=== PATIENT | female | born 1965 | race Caucasian/White ===

== ENCOUNTER 2017-12-15 19:42 | Observation (INO) ==
[2017-12-15] MEDS ORDERED: SODIUM CHLORIDE 0.9% 1,000 ML IV STA ×2 (20:25→22:42)
[2017-12-15] MEDS ORDERED: ONDANSETRON 4 MG/2 ML VIAL IV STA (20:25)
[2017-12-15] MEDS ORDERED: ACETAMINOPHEN 500 MG TABLET PO STA (20:27)
[2017-12-15 20:31] LABS: Basophils % 0.1 % (0.0-0.8); Hematocrit 35.4 VOL% (35.7-47.0); Hemoglobin 12.2 GM/DL (12.0-16.0); Immature Granulocytes % 0.4 %; Immature Granulocytes Absolute 0.04 #; Lymphocytes # 0.4 10*3/uL (1.4-4.0); Mean Corpuscular HGB Conc 34.5 GM/DL (32-36); Mean Corpuscular Hemoglobin 32 PG (27-34); Mean Corpuscular Volume 91.5 FL (87-102); Mean Platelet Volume 10.4 FL (9.6-12.0); Monocytes # 0.1 10*3/uL (0.11-0.8); Monocytes % 1.1 % (1.7-12.7); Neutrophils # 9.8 10*3/uL (1.4-7.4); Neutrophils % 94.4 % (38.7-73.9); Platelet Count 166 T/CUMM (130-400); Red Blood Count 3.87 MC/CUMM (3.8-5.5); Red Cell Distribution Width 12.4 % (9.3-17.3); White Blood Count 10.4 T/CUMM (4-12)
[2017-12-15 20:45] LABS: Albumin 2.6 G/DL (3.4-5.0); Bilirubin,Total 0.4 MG/DL (0.2-1.0); Calcium 7.8 MG/DL (8.5-10.1); Osmolality,Calculated 276.5 MOS/KG (273-304); Potassium 2.6 MMOL/L (3.5-5.1); Total Protein 6.7 G/DL (6.4-8.3)
[2017-12-15 20:53] LABS: Band Neutrophils 39 % (0-10); Lymphocytes 3 % (20-55); Platelet Estimate Normal; Segmented Neutrophils 56 % (50-85)
[2017-12-15 20:54] LABS: Microcytosis Slight
[2017-12-15 20:55] LABS: Total Cells Counted 100
[2017-12-15] MEDS ORDERED: POTASSIUM BICARB EFFERVESCENT 25 MEQ TABLET PO ONE ×2 (21:07→23:56)
[2017-12-15] MEDS ORDERED: LEVOFLOXACIN INJ 500 MG in PREMIX 1 EACH IV STA (21:37)
[2017-12-15 22:25] LABS: Apearance,Urine Slightly Hazy (Clear); Bacteria,Urine Occasional /HPF (Few); Bilirubin,Urine Negative (Negative); Blood, Urine Small mg/dL (Negative); Glucose,Urine (UA) Negative (Negative); Ketones,Urine 5 mg/dL (Negative); Mucus,Urine Occasional /LPF (Occasional); Nitrite,Urine Positive (Negative); Protein,Urine 30 MG/DL; RBC,Urine 3 /HPF (0-4); Squamous Epithelial Cell,Urine Occasional /HPF (0-10); Urine Color Yellow (Yellow); Urine Specific Gravity 1.056 (1.001-1.035); Urine Urobilinogen < 2.0 EU/DL (0.2-1.0); WBC,Urine 70 /HPF (0-6)
[2017-12-15] MEDS ORDERED: MORPHINE 4 MG/1 ML VIAL IV PRN (23:44)
[2017-12-15] MEDS ORDERED: diphenhydrAMINE CAP 25 MG CAPSULE PO PRN (23:44)
[2017-12-15] MEDS ORDERED: POTASSIUM CHLORIDE 20 MEQ TABLET PO ONE (23:44)
[2017-12-15] MEDS ORDERED: ZALEPLON 5 MG CAPSULE PO PRN (23:44)
[2017-12-15] MEDS ORDERED: PROMETHAZINE 25 MG/1 ML VIAL IM PRN (23:44)
[2017-12-15] MEDS ORDERED: NICOTINE 21 MG/24 HR PATCH TRANSDERM PRN (23:44)
[2017-12-15] MEDS ORDERED: LACTULOSE 20 GM/30 ML UDCUP PO PRN (23:44)
[2017-12-16] MEDS: CIPROFLOXACIN INJ 400 MG in PREMIX 1 EACH IV SCH ×3 (00:20→15:25)
[2017-12-16] MEDS ORDERED: CIPROFLOXACIN 400 MG/200 ML PREMIX IV ONE (00:29)
[2017-12-16] MEDS: SODIUM CHLORIDE 0.9% 1,000 ML IV SCH ×3 (01:58→22:48)
[2017-12-16] MEDS: metroNIDAZOLE INJ 500 MG in PREMIX 1 EACH IV SCH ×3 (01:59→17:47)
[2017-12-16] MEDS: ACETAMINOPHEN 325 MG TABLET PO PRN ×2 (01:59→17:46)
[2017-12-16] MEDS: ONDANSETRON 4 MG/2 ML VIAL IV PRN ×3 (02:05→15:20)
[2017-12-16 05:50] LABS: Basophils % 0.2 % (0.0-0.8); Eosinophils % 0.3 % (0.00-10.9); Hemoglobin 11.8 GM/DL (12.0-16.0); Immature Granulocytes % 0.4 %; Immature Granulocytes Absolute 0.05 #; Lymphocytes # 1.3 10*3/uL (1.4-4.0); Lymphocytes % 11.3 % (21.3-54.2); Mean Corpuscular HGB Conc 34.7 GM/DL (32-36); Mean Corpuscular Hemoglobin 32 PG (27-34); Mean Corpuscular Volume 92.9 FL (87-102); Mean Platelet Volume 10.3 FL (9.6-12.0); Monocytes # 0.6 10*3/uL (0.11-0.8); Monocytes % 5.4 % (1.7-12.7); Neutrophils # 9.2 10*3/uL (1.4-7.4); Neutrophils % 82.4 % (38.7-73.9); Platelet Count 159 T/CUMM (130-400); Red Blood Count 3.66 MC/CUMM (3.8-5.5); Red Cell Distribution Width 12.8 % (9.3-17.3); White Blood Count 11.1 T/CUMM (4-12)
[2017-12-16 06:40] LABS: Albumin 2.3 G/DL (3.4-5.0); Bilirubin,Total 0.4 MG/DL (0.2-1.0); Calcium 7.3 MG/DL (8.5-10.1); Osmolality,Calculated 276.4 MOS/KG (273-304); Potassium 3.2 MMOL/L (3.5-5.1); Total Protein 6.2 G/DL (6.4-8.3)
[2017-12-16] MEDS: POTASSIUM CHLORIDE 20 MEQ TABLET PO SCH (10:54)
[2017-12-16] MEDS: ASPIRIN EC 81 MG TABLET PO SCH (10:55)
[2017-12-16] MEDS: CALCIUM (CARBONATE) 600 MG TABLET PO SCH ×2 (10:56→20:11)
[2017-12-16] MEDS: PANTOPRAZOLE 40 MG TABLET PO SCH (11:05)
[2017-12-16] MEDS: METOPROLOL SUCCINATE XL 50 MG TABLET PO SCH (11:17)
[2017-12-16] MEDS: IRBESARTAN 150 MG TABLET PO SCH (11:17)
[2017-12-16] MEDS: ATORVASTATIN 20 MG TABLET PO SCH (17:46)
[2017-12-17] MEDS: CIPROFLOXACIN INJ 400 MG in PREMIX 1 EACH IV SCH ×2 (00:29→09:21)
[2017-12-17] MEDS: metroNIDAZOLE INJ 500 MG in PREMIX 1 EACH IV SCH ×2 (02:30→09:14)
[2017-12-17 04:44] LABS: Basophils % 0.2 % (0.0-0.8); Eosinophils % 0.5 % (0.00-10.9); Immature Granulocytes % 0.5 %; Immature Granulocytes Absolute 0.04 #; Lymphocytes # 1.2 10*3/uL (1.4-4.0); Lymphocytes % 13.5 % (21.3-54.2); Mean Corpuscular HGB Conc 33.3 GM/DL (32-36); Mean Corpuscular Hemoglobin 31 PG (27-34); Mean Corpuscular Volume 93.8 FL (87-102); Mean Platelet Volume 10.6 FL (9.6-12.0); Monocytes # 0.9 10*3/uL (0.11-0.8); Monocytes % 10.6 % (1.7-12.7); Neutrophils # 6.4 10*3/uL (1.4-7.4); Neutrophils % 74.7 % (38.7-73.9); Platelet Count 175 T/CUMM (130-400); Red Blood Count 3.52 MC/CUMM (3.8-5.5); Red Cell Distribution Width 12.8 % (9.3-17.3); White Blood Count 8.5 T/CUMM (4-12)
[2017-12-17 04:59] LABS: Calcium 7.6 MG/DL (8.5-10.1); Osmolality,Calculated 276.4 MOS/KG (273-304); Potassium 3.5 MMOL/L (3.5-5.1)
[2017-12-17] MEDS: ASPIRIN EC 81 MG TABLET PO SCH (08:30)
[2017-12-17] MEDS: IRBESARTAN 150 MG TABLET PO SCH (08:31)
[2017-12-17] MEDS: POTASSIUM CHLORIDE 20 MEQ TABLET PO SCH (08:31)
[2017-12-17] MEDS: CALCIUM (CARBONATE) 600 MG TABLET PO SCH ×2 (08:31→21:31)
[2017-12-17] MEDS: METOPROLOL SUCCINATE XL 50 MG TABLET PO SCH (08:31)
[2017-12-17] MEDS: PANTOPRAZOLE 40 MG TABLET PO SCH (08:31)
[2017-12-17] MEDS: ATORVASTATIN 20 MG TABLET PO SCH (17:29)
[2017-12-17] MEDS: CIPROFLOXACIN 500 MG TABLET PO SCH (21:31)
[2017-12-17] MEDS: metroNIDAZOLE 500 MG TABLET PO SCH (21:31)
[2017-12-17] MEDS ORDERED: CIPROFLOXACIN INJ 400 MG in PREMIX 1 EACH IV SCH (23:00)
[2017-12-18 05:26] LABS: Basophils % 0.4 % (0.0-0.8); Eosinophils % 0.5 % (0.00-10.9); Hematocrit 32.6 VOL% (35.7-47.0); Hemoglobin 11.1 GM/DL (12.0-16.0); Immature Granulocytes % 0.9 %; Immature Granulocytes Absolute 0.07 #; Lymphocytes # 1.2 10*3/uL (1.4-4.0); Mean Corpuscular Hemoglobin 32 PG (27-34); Mean Corpuscular Volume 93.7 FL (87-102); Mean Platelet Volume 10.7 FL (9.6-12.0); Monocytes # 0.8 10*3/uL (0.11-0.8); Monocytes % 9.5 % (1.7-12.7); Neutrophils % 73.7 % (38.7-73.9); Platelet Count 210 T/CUMM (130-400); Red Blood Count 3.48 MC/CUMM (3.8-5.5); Red Cell Distribution Width 12.7 % (9.3-17.3); White Blood Count 8.1 T/CUMM (4-12)
[2017-12-18] MEDS: metroNIDAZOLE 500 MG TABLET PO SCH (05:40)
[2017-12-18 06:04] LABS: Calcium 8.3 MG/DL (8.5-10.1); Osmolality,Calculated 276.4 MOS/KG (273-304); Potassium 3.6 MMOL/L (3.5-5.1)
[2017-12-18 07:56] VITALS: BP 132/85
[2017-12-18] MEDS: PANTOPRAZOLE 40 MG TABLET PO SCH (08:14)
[2017-12-18] MEDS: CIPROFLOXACIN 500 MG TABLET PO SCH (08:15)
[2017-12-18] MEDS: POTASSIUM CHLORIDE 20 MEQ TABLET PO SCH (08:15)
[2017-12-18] MEDS: CALCIUM (CARBONATE) 600 MG TABLET PO SCH (08:15)
[2017-12-18] MEDS: IRBESARTAN 150 MG TABLET PO SCH (08:15)
[2017-12-18] MEDS: ASPIRIN EC 81 MG TABLET PO SCH (08:15)
[2017-12-18] MEDS: METOPROLOL SUCCINATE XL 50 MG TABLET PO SCH (08:15)
== END 2017-12-18 12:19 | disposition home or self-care (01) ==
LOC: EDUNIT# → EDBD → N.ED 19:42 → N.5E 23:44 → SUATTDRO 23:44 → INTOOBSV 23:44 → N.5E 12-16 00:52
PROVIDERS: ATTEND Internal Medicine

== ENCOUNTER 2019-09-05 19:06 | Inpatient (IN) ==
[2019-09-05] MEDS ORDERED: ACETAMINOPHEN 500 MG TABLET PO STA (20:03)
[2019-09-05] MEDS ORDERED: ONDANSETRON 4 MG/2 ML VIAL IV STA (20:03)
[2019-09-05] MEDS ORDERED: SODIUM CHLORIDE 0.9% 1,000 ML IV STA (20:03)
[2019-09-05 20:12] LABS: Hemoglobin 13.1 GM/DL (12.0-16.0); Immature Granulocytes % 0.3 %; Immature Granulocytes Absolute 0.01 #; Lymphocytes # 0.6 10*3/uL (1.4-4.0); Mean Corpuscular HGB Conc 33.6 GM/DL (32-36); Mean Corpuscular Volume 92.2 FL (87-102); Mean Platelet Volume 11.2 FL (9.6-12.0); Monocytes % 7.4 % (1.7-12.7); Neutrophils % 76.3 % (38.7-73.9); Platelet Count 128 T/CUMM (130-400); Red Blood Count 4.23 MC/CUMM (3.8-5.5); Red Cell Distribution Width 12.2 % (9.3-17.3); White Blood Count 3.8 T/CUMM (4-12)
[2019-09-05 20:18] LABS: PT Patient Result 10.9 SECS (9.8-11.9)
[2019-09-05 20:24] LABS: Alanine Aminotransferase 20 U/L (13-56); Albumin 3.9 G/DL (3.4-5.0); Alkaline Phosphatase 118 U/L (45-117); Aspartate Amino Transferase 22 U/L (0-37); Bilirubin,Total < 0.39 MG/DL (0.2-1.0); Blood Urea Nitrogen 12 MG/DL (7-18); Calcium 8.3 MG/DL (8.5-10.1); Estimated Glom Filtration Rate 68 ML/MIN; Glucose 96 MG/DL (74-106); Total Protein 7.1 G/DL (6.4-8.3)
[2019-09-05 21:44] LABS: Apearance,Urine CLOUDY (Clear); Bilirubin,Urine Negative (Negative); Blood, Urine Moderate mg/dL (Negative); Glucose,Urine (UA) Negative (Negative); Ketones,Urine Negative (Negative); Mucus,Urine Occasional /LPF (Occasional); Nitrite,Urine Negative (Negative); Protein,Urine Negative; RBC,Urine 50 /HPF (0-4); Squamous Epithelial Cell,Urine Few /HPF (0-10); Urine Color Yellow (Yellow); Urine Specific Gravity 1.018 (1.001-1.035); Urine Urobilinogen < 2.0 EU/DL (0.2-1.0); WBC,Urine 4 /HPF (0-6)
[2019-09-05] MEDS ORDERED: AZITHROMYCIN INJ 500 MG in SODIUM CHLORIDE 0.9% 250 ML IV STA (22:32)
[2019-09-05] MEDS ORDERED: SIMETHICONE CHEW 125 MG TABLET PO PRN (23:12)
[2019-09-05] MEDS ORDERED: GLUCAGON 1 MG VIAL IM PRN (23:12)
[2019-09-05] MEDS ORDERED: ONDANSETRON 4 MG/2 ML VIAL IV PRN (23:12)
[2019-09-05] MEDS ORDERED: ALUMINUM/MAGNES/SIMETH MAX STR 30 ML UDCUP PO PRN (23:12)
[2019-09-05] MEDS ORDERED: DEXTROSE 50% 25 GM/50 ML VIAL IV PRN (23:12)
[2019-09-05] MEDS ORDERED: diphenhydrAMINE CAP 25 MG CAPSULE PO PRN (23:12)
[2019-09-06 00:14] LABS: Ferritin 243.5 ng/ml (8-252)
[2019-09-06] MEDS: ENOXAPARIN 40 MG/0.4 ML SYRINGE SUBCUT SCH ×2 (00:41→20:51)
[2019-09-06] MEDS: SODIUM CHLORIDE 0.9% 1,000 ML IV SCH ×3 (00:41→21:44)
[2019-09-06] MEDS: cefTRIAXone 1,000 MG in SYRINGE 1 EACH IV SCH ×2 (00:41→20:51)
[2019-09-06] MEDS: ALBUTEROL INHALER 18 GM INH SCH ×4 (00:42→19:15)
[2019-09-06] MEDS ORDERED: ALBUTEROL 2.5 MG/3 ML NEB RESP TX SCH (01:00)
[2019-09-06] MEDS: ACETAMINOPHEN 325 MG TABLET PO PRN ×3 (01:04→23:30)
[2019-09-06 07:51] LABS: Basophils % 0.3 % (0.0-0.8); Eosinophils % 0.3 % (0.00-10.9); Hematocrit 35.3 VOL% (35.7-47.0); Hemoglobin 11.6 GM/DL (12.0-16.0); Immature Granulocytes % 0.3 %; Immature Granulocytes Absolute 0.01 #; Lymphocytes # 1.2 10*3/uL (1.4-4.0); Lymphocytes % 39.8 % (21.3-54.2); Mean Corpuscular HGB Conc 32.9 GM/DL (32-36); Mean Corpuscular Volume 95.9 FL (87-102); Mean Platelet Volume 11.1 FL (9.6-12.0); Monocytes % 9.7 % (1.7-12.7); Neutrophils % 49.6 % (38.7-73.9); Platelet Count 111 T/CUMM (130-400); Red Blood Count 3.68 MC/CUMM (3.8-5.5); Red Cell Distribution Width 12.4 % (9.3-17.3); White Blood Count 3.1 T/CUMM (4-12)
[2019-09-06 08:11] LABS: Hypochromasia Slight; Microcytosis 1+; Platelet Estimate Decreased
[2019-09-06 08:22] LABS: Calcium 7.7 MG/DL (8.5-10.1); Osmolality,Calculated 285.7 MOS/KG (273-304); Risk Ratio 4.87; Thyroid Stimulating Hormone 0.537 uIU/ml (0.358-3.74); VLDL CHOLESTEROL 24.4 MG/DL
[2019-09-06] MEDS: DOCUSATE SODIUM 100 MG CAPSULE PO SCH ×2 (09:03→20:51)
[2019-09-06] MEDS: ZINC GLUCONATE 50 MG TABLET PO SCH (09:03)
[2019-09-06] MEDS: CHOLECALCIFEROL 400 UNIT TABLET PO SCH (09:03)
[2019-09-06] MEDS: PANTOPRAZOLE 40 MG TABLET PO SCH (09:03)
[2019-09-06] MEDS: ASCORBIC ACID 500 MG TABLET PO SCH (09:03)
[2019-09-06] MEDS: amLODIPine 10 MG TABLET PO SCH (11:50)
[2019-09-06] MEDS: AZITHROMYCIN 250 MG TABLET PO SCH (20:51)
[2019-09-06] MEDS ORDERED: AZITHROMYCIN INJ 500 MG in SODIUM CHLORIDE 0.9% 250 ML IV SCH (21:00)
[2019-09-07] MEDS: ALBUTEROL INHALER 18 GM INH SCH ×4 (00:46→19:20)
[2019-09-07] MEDS: SODIUM CHLORIDE 0.9% 1,000 ML IV SCH ×3 (07:01→16:05)
[2019-09-07] MEDS: CHOLECALCIFEROL 400 UNIT TABLET PO SCH (08:18)
[2019-09-07] MEDS: PANTOPRAZOLE 40 MG TABLET PO SCH (08:18)
[2019-09-07] MEDS: DOCUSATE SODIUM 100 MG CAPSULE PO SCH ×2 (08:18→20:19)
[2019-09-07] MEDS: amLODIPine 10 MG TABLET PO SCH (08:19)
[2019-09-07] MEDS: ASCORBIC ACID 500 MG TABLET PO SCH (08:19)
[2019-09-07] MEDS: cefTRIAXone 1,000 MG in SYRINGE 1 EACH IV SCH (20:19)
[2019-09-07] MEDS: ACETAMINOPHEN 325 MG TABLET PO PRN (20:19)
[2019-09-07] MEDS: AZITHROMYCIN 250 MG TABLET PO SCH (20:19)
[2019-09-07] MEDS: ENOXAPARIN 40 MG/0.4 ML SYRINGE SUBCUT SCH (20:20)
[2019-09-08] MEDS: ALBUTEROL INHALER 18 GM INH SCH ×2 (01:09→06:13)
[2019-09-08] MEDS: amLODIPine 10 MG TABLET PO SCH (08:04)
[2019-09-08] MEDS: PANTOPRAZOLE 40 MG TABLET PO SCH (08:04)
[2019-09-08] MEDS: DOCUSATE SODIUM 100 MG CAPSULE PO SCH (08:04)
[2019-09-08] MEDS: ASCORBIC ACID 500 MG TABLET PO SCH (08:04)
[2019-09-08] MEDS: ZINC GLUCONATE 50 MG TABLET PO SCH (08:04)
[2019-09-08] MEDS: CHOLECALCIFEROL 400 UNIT TABLET PO SCH (08:04)
[2019-09-08] MEDS: SODIUM CHLORIDE 0.9% 1,000 ML IV SCH (08:06)
[2019-09-08] MEDS ORDERED: TRIAMTERENE/HCTZ 37.5-25 MG TABLET PO SCH (09:00)
[2019-09-08 11:43] VITALS: BP 135/89
== END 2019-09-08 11:38 | disposition home or self-care (01) | DRG 137 ==
LOC: EDBD → EDUNIT# → N.ED 19:06 → N.EDINP 23:12 → SUATTDRO 23:12 → N.2E 23:44
PROVIDERS: ADMIT Internal Medicine; ATTEND Internal Medicine